=== PATIENT | female | born 1995 | race Hispanic/Latino ===

== ENCOUNTER 2018-06-17 14:01 | Emergency (ER) | payer BC ==
[2018-06-17 14:51] VITALS: TEMP 98; O2SAT 99
[2018-06-17] MEDS ORDERED: Sodium Chloride 0.9% 1,000 ML IV STA (14:53)
--- NOTE | 2018-06-17 16:32 | ED PDOC ---
Arrival/HPI - General Chief Complaint: Abdominal Pain Time Seen by Provider: 06/17/18 14:32 Historian: Patient - History of Present Illness Narrative History of Present Illness (Text): 06/17/18 16:24 23yo female with pmhx of gastritis present with complaint of burning epigastric pain with associated nausea since this morning. Notes is similar to the pain she have had before from gastritis. She notes that she was on medication for it but ran out and have not seen her GI. She denies vomiting, diarrhea, constipation, hematemesis, melena, fever, chills, sick contact, travel, any other complaint. Past Medical History - Provider Review Nursing Documentation Reviewed: Yes - Infectious Disease Hx of Infectious Diseases: None - Reproductive Menopause: No - Cardiac Hx Cardiac Disorders: No - Gastrointestinal Hx Gastritis: Yes - Psychiatric Hx Substance Use: No - Anesthesia Hx Anesthesia: No Family/Social History - Physician Review Nursing Documentation Reviewed: Yes Family/Social History: Unknown Family HX Smoking Status: Unknown If Ever Smoked Hx Alcohol Use: No Hx Substance Use: No Allergies/Home Meds Allergies/Adverse Reactions: Allergies azithromycin [From Zithromax Z-Rayo] Allergy (Verified 06/17/18 14:49) RASH clarithromycin [From Biaxin] Allergy (Verified 06/17/18 14:49) RASH Penicillins Allergy (Verified 06/17/18 14:49) RASH vancomycin Allergy (Verified 06/17/18 14:49) RASH Review of Systems - Physician Review All systems were reviewed & negative as marked: Yes - Review of Systems Constitutional: Normal Eyes: Normal ENT: Normal Respiratory: Normal Cardiovascular: Normal Gastrointestinal: Abdominal Pain, Nausea. absent: Constipation, Diarrhea, Vomiting, Hematochezia, Hematemesis Genitourinary Female: Normal Musculoskeletal: Normal Skin: Normal Neurological: Normal Endocrine: Normal Hemo/Lymphatic: Normal Psychiatric: Normal Physical Exam Vital Signs Reviewed: Yes Vital Signs Temp Pulse Resp BP Pulse Ox 06/17/18 18:24 70 16 111/80 06/17/18 14:39 98 F 68 18 112/80 99 Temperature: Afebrile Blood Pressure: Normal Pulse: Regular Respiratory Rate: Normal Appearance: Positive for: Well-Appearing, Non-Toxic, Comfortable Pain Distress: None Mental Status: Positive for: Alert and Oriented X 3 - Systems Exam Head: Present: Atraumatic, Normocephalic Pupils: Present: PERRL Extroacular Muscles: Present: EOMI Conjunctiva: Present: Normal Mouth: Present: Moist Mucous Membranes Neck: Present: Normal Range of Motion Respiratory/Chest: Present: Clear to Auscultation, Good Air Exchange. No: Respiratory Distress, Accessory Muscle Use Cardiovascular: Present: Regular Rate and Rhythm, Normal S1, S2. No: Murmurs Abdomen: Present: Tenderness (Epigastric tenderness), Normal Bowel Sounds, Guarding (Voluntary), Other (soft). No: Distention, Peritoneal Signs, Rebound, McBurney's Point Tender, Rovsing's Sign Present Back: Present: Normal Inspection Upper Extremity: Present: Normal Inspection. No: Cyanosis, Edema Lower Extremity: Present: Normal Inspection. No: Edema Neurological: Present: GCS=15, CN II-XII Intact, Speech Normal Skin: Present: Warm, Dry, Normal Color. No: Rashes Psychiatric: Present: Alert, Oriented x 3, Normal Insight, Normal Concentration Medical Decision Making ED Course and Treatment: 06/18/18 01:44 PT presented for stated history. Labs and medications was given in ED On re evaluation she notes resolution of her pain. Pt's pain likely from gastritis. all result was DW the pt and she DC home with pepcid. She have a GI and was advised to f/u with her GI - Lab Interpretations Lab Results: 06/17/18 16:16 06/17/18 16:16 Lab Results 06/17/18 16:16: Urine Color Yellow, Urine Appearance Clear, Urine pH 7.0, Ur Specific [place] 1.010, Urine Protein Negative, Urine Glucose (UA) Negative, Urine Ketones Negative, Urine Blood Negative, Urine Nitrate Negative, Urine Bilirubin Negative, Urine Urobilinogen 0.2, Ur Leukocyte Esterase Negative 06/17/18 16:16: Sodium 139, Potassium 3.6, Chloride 104, Carbon Dioxide 23, Anion Gap 16, BUN 12, Creatinine 0.7, Est GFR ( Amer) > 60, Est GFR (Non- Af Amer) > 60, Random Glucose 86, Calcium 10.6 H, Magnesium 1.7, Total Bilirubin 0.5, AST 25, ALT 24, Alkaline Phosphatase 53, Total Protein 8.1, Albumin 4.6, Globulin 3.4, Albumin/Globulin Ratio 1.3, Lipase 146 06/17/18 16:16: PT 11.5, INR 1.01, APTT 29.8 06/17/18 16:16: WBC 9.7, RBC 4.70, Hgb 14.1, Hct 41.8, MCV 88.9, MCH 30.0, MCHC 33.7, RDW 12.9, Plt Count 332, MPV 9.8, Gran % 69.6 H, Lymph % (Auto) 20.9 L, Keith % (Auto) 7.9 H, Eos % (Auto) 1.4 L, Baso % (Auto) 0.2, Gran # 6.73 H, Lymph # (Auto) 2.0, Keith # (Auto) 0.8 H, Eos # (Auto) 0.1, Baso # (Auto) 0.02 - Medication Orders Current Medication Orders: Discontinued Medications Famotidine (Pepcid) 20 mg IVP STAT STA Stop: 06/17/18 14:51 Last Admin: 06/17/18 15:53 Dose: 20 mg IVP Administration Document 06/17/18 15:53 PENG (Rec: 06/17/18 15:53 [id number] Charges for Administration # of IVP Administrations 1 Sodium Chloride (Sodium Chloride 0.9%) 1,000 mls @ 999 mls/hr IV .Q1H1M STA Stop: 06/17/18 15:53 Last Admin: 06/17/18 15:52 Dose: 999 mls/hr eMAR Start Stop Document 06/17/18 15:52 PENG (Rec: 06/17/18 15:52 [id number] Intravenous Solution Start Date 06/17/18 Start Time 15:52 End Date 06/17/18 End time 16:52 Total Infusion Time 60 Ondansetron HCl (Zofran Inj) 4 mg IVP STAT STA Stop: 06/17/18 14:51 Last Admin: 06/17/18 15:53 Dose: 4 mg IVP Administration Document 06/17/18 15:53 PENG (Rec: 06/17/18 15:53 [id number] Charges for Administration # of IVP Administrations 1 Disposition/Present on Arrival - Present on Arrival Any Indicators Present on Arrival: No History of DVT/PE: No History of Uncontrolled Diabetes: No Urinary Catheter: No History of Decub. Ulcer: No History Surgical Site Infection Following: None - Disposition Have Diagnosis and Disposition been Completed?: Yes Diagnosis: Abdominal pain Disposition: HOME/ ROUTINE Disposition Time: 17:30 Patient Plan: Discharge Condition: STABLE Discharge Instructions (ExitCare): Acute Abdomen (Belly Pain) Additional Instructions: Follow up with your Doctor/GI Return to ED for any new or worsening symptoms Prescriptions: Famotidine [Pepcid] 40 mg PO DAILY #15 tab Referrals: Damon Etienne MD [Primary Care Provider] - Follow up with primary Elisabeth Aguilar MD [Medical Doctor] - Follow up with primary Forms: [employer] [employer] (Turkish)
[2018-06-17 16:37] LABS: BASO # 0.02 K/mm3 (0.0-2.0); BASO % 0.2 % (0.0-3.0); EOS # 0.1 (0.0-0.7); EOS % 1.4 % (1.5-5.0); GRAN # 6.73 (1.4-6.5); GRAN % 69.6 % (50.0-68.0); HEMOGLOBIN 14.1 g/dL (12.0-16.0); LYMPH % 20.9 % (22.0-35.0); MEAN CELL VOLUME 88.9 fl (80.0-105.0); MEAN CORPUSCULAR HGB CONC 33.7 g/dl (31.0-37.0); MEAN PLATELET VOLUME 9.8 fl (7.0-11.0); MONO # 0.8 (0.1-0.6); MONO % 7.9 % (1.0-6.0); RBC 4.7 10^6/uL (3.5-6.1); RED CELL DISTRIBUTION WIDTH 12.9 % (11.5-14.5); WHITE BLOOD COUNT 9.7 10^3/ul (4.5-11.0)
[2018-06-17 16:38] LABS: URINE BILIRUBIN NEGATIVE (NEGATIVE); URINE BLOOD NEGATIVE (NEGATIVE); URINE GLUCOSE (UA) NEGATIVE (NEGATIVE); URINE LEUKOCYTE ESTERASE NEGATIVE Leu/uL (NEGATIVE); URINE PROTEIN NEGATIVE mg/dL (<30 mg/dL); URINE UROBILINOGEN 0.2 E.U./dL (<1 E.U./dL)
[2018-06-17 16:40] LABS: URINE APPEARANCE CLEAR (CLEAR); URINE COLOR YELLOW (YELLOW)
[2018-06-17 16:41] LABS: ALB/GLOB RATIO 1.3 (1.1-1.8); ALBUMIN 4.6 g/dL (3.0-4.8); ALT/SGPT 24 U/L (7-56); AST/SGOT 25 U/L (14-36); BLOOD UREA NITROGEN 12 mg/dL (7-21); CALCIUM 10.6 mg/dL (8.4-10.5); GFR NON-AFRICAN AMERICAN > 60; INR 1.01; LIPASE 146 U/L (23-300); PARTIAL THROMBOPLASTIN TIME 29.8 Seconds (25.1-36.5); PROTHROMBIN TIME 11.5 SECONDS (9.4-12.5)
[2018-06-17 18:25] VITALS: BP 111/80; PULSE 70; RESP 16
== END 2018-06-17 18:23 | disposition home or self-care (01) ==
LOC: ED 14:01
DX: R10.9 Unspecified abdominal pain (principal)
CPT/HCPCS: 80053; 81003; 83690; 83735; 85025; 85610; 85730; 96361; 96374; 96375; 99283; J2405; J7030